=== PATIENT | female | born 1940 | race Caucasian/White ===

== ENCOUNTER → 2018-02-12 | Day surgery (SDC) | payer MEDICARE, OTHER ==
[~2018-02-12] MED LIST: LIDOCAINE 2% PF Vial for OR 5 ML VIAL.; PROPOFOL 20 ML IV
[2018-02-12] MEDS: IV RINGERS,LACTATED 1000ML 1,000 ML IV (12:00)
== END | disposition home or self-care (01) ==
LOC: ENDOS 11:32
DX: K22.70 Barrett's esophagus without dysplasia (principal); K21.0 Gastro-esophageal reflux disease with esophagitis; K31.84 Gastroparesis; M19.90 Unspecified osteoarthritis, unspecified site; F41.9 Anxiety disorder, unspecified; Z88.8 Allergy status to other drugs, medicaments and biological substances; Z82.49 Family history of ischemic heart disease and other diseases of the circulatory system; Z80.3 Family history of malignant neoplasm of breast; Z72.89 Other problems related to lifestyle; Z90.710 Acquired absence of both cervix and uterus; Z79.2 Long term (current) use of antibiotics; Z79.899 Other long term (current) drug therapy; E78.00 Pure hypercholesterolemia, unspecified; Z98.890 Other specified postprocedural states
CPT/HCPCS: 43239; 88305; J2704

== ENCOUNTER 2018-04-21 12:32 | Emergency (ER) | payer MEDICARE, OTHER | END 2018-04-21 15:10 | disposition home or self-care (01) | LOC: ER 12:32 | DX: S80.02XD Contusion of left knee, subsequent encounter (principal); K21.9 Gastro-esophageal reflux disease without esophagitis; M19.90 Unspecified osteoarthritis, unspecified site; Z90.710 Acquired absence of both cervix and uterus; Z88.8 Allergy status to other drugs, medicaments and biological substances; W18.30XD Fall on same level, unspecified, subsequent encounter | CPT/HCPCS: 73564; 73590; 73610; 73630; 93971; 99284 ==

== ENCOUNTER → 2020-12-04 | Outpatient (CLI) | payer MEDICARE, OTHER ==
[2018-04-21 15:02] VITALS: BP 209/84
[~2020-12-04] MED LIST changes: +CALC-507 PO; +CHOL400D6 PO; +ERYT250C33 PO; +ESOM40CA PO; +GLUC100018 PO; +LACT1CAP8 PO; -LIDOCAINE 2% PF Vial for OR 5 ML VIAL.; +MULT-460 PO; +NAPR220C4 PO; -PROPOFOL 20 ML IV; +SERT25TA PO; +TRAM50TA PO; +UBID100C26 PO; +VIT1TABL32 PO; +VITA100022 PO; +[UNRECOGNIZED DRUG - CODE]
--- NOTE | 2020-12-05 11:23 | RAD ---
MRI of the abdomen without contrast to include a MRCP 12/04/2020 CLINICAL HISTORY: Right-sided abdominal pain. Pancreatic lesion seen on recent CT scan. TECHNIQUE: Unenhanced T2-weighted axial and coronal fat saturated T2-weighted axial, diffusion-weight ed axial and inversion phase T1-weighted axial images of the abdomen were obtained. Additionally thin section fat saturated T2-weighted coronal images of the abdomen were obtained. Multiplanar 3-D MIP r econstructed images of the biliary system were obtained for an MRCP. FINDINGS: Comparison is made to patient's CT scan abdomen and pelvis dated 11/01/2020. The liver, spleen, left adrenal gland and left kidney are within normal limits. A 1 cm rounded nodule seen involving the superior aspect of the right adrenal gland. This contains fat and is consistent w ith an adrenal adenoma. A 6 mm high signal intensity lesion is seen on the T2-weighted images extendi ng laterally from the lower pole the right kidney. This likely represents a cyst. No further imaging evaluation is recommended. A cystic lesion is seen within the body of the pancreas on the T2-weighted images which measures 1.5 cm in greatest diameter. This corresponds to the abnormality seen on the patients CT scan. This exten ds from a dilated sidebranch of the main pancreatic duct. This is consistent with a branch duct IPMN. The main pancreatic duct is not dilated. No additional abnormality of the pancreas is seen. The abdominal aorta tapers normally. No free fluid is seen within the abdomen. There is no evidence o f bowel obstruction. MRCP images demonstrate the gallbladder to be slightly contracted. The left and right hepatic ducts a nd their branches, the common hepatic duct and common bile duct are normal in caliber. No filling def ect is seen. Mild S-shaped curvature of the thoracolumbar spine is seen. IMPRESSION: 1.5 cm cystic lesion is seen involving the body of the pancreas which corresponds to abno rmality seen on the patients CT scan. 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 Electronically signed by: Donald Menendez MD (12/05/2020 11:21 AM) [id number]
== END ==
LOC: MRI 10:22
PROVIDERS: ATTEND Internal Medicine Gastroenterology
DX: K86.9 Disease of pancreas, unspecified (principal); M43.8X5 Other specified deforming dorsopathies, thoracolumbar region
CPT/HCPCS: 74181